=== PATIENT | female | born 1945 | race Caucasian/White ===

== ENCOUNTER 2017-02-08 06:58 | Emergency (ER) | payer MEDICARE ==
[~2017-02-08] VITALS: Ht 165.1 cm; Wt 57.0 kg
[~2017-02-08 06:58] MED LIST: AMIT100T6; ASPI81; CALC250T; CLOP75; FISH300C2; IRBE150T49; LORA-392; NITR0.4S; SYNT88TA; TAB-TAB; TEMA7.5C9
[2017-02-08 07:06] VITALS: BP 113/67; PULSE 92; RESP 19; TEMP 98.8; O2SAT 99
--- NOTE | 2017-02-08 07:22 | PD ---
HPI Chief Complaint: Suicide Ideation/Attempt Time Seen by Provider: 07:07 Travel History International Travel<30 days: No Contact w/Intl Traveler<30days: No Traveled to known affect area: No History of Present Illness HPI Patient is a 71-year-old female who presents to emergency room under a Jolley act. As per police officers, they responded to a call as patient attended suicide last night. Patient reports that she took 2 Restoril 30 mg as well as 2 tablets of trazodone 50 mg between the hours of 1 AM to 5:45 AM. Patient reports that she wanted to go to sleep and didn't care if she woke up. Patient reports that she takes Elavil 100 mg for depression, reports that she is angry as her primary care doctor refuses refill her medications. Patient did admit to having suicidal ideations to the police officers, patient endorses to me that "I want to go to sleep and I don't care if I don't wake up." Patient denies use of drugs or alcohol. No other complaints. PFSH Past Medical History Arthritis: No Asthma: No Autoimmune Disease: No Blood Disorders: No Anxiety: Yes Heart Rhythm Problems: Yes (POST STENT) Cancer: No Cardiac Catheterization: Yes Cardiovascular Problems: Yes High Cholesterol: No Chemotherapy: No Chest Pain: No Congestive Heart Failure: No COPD: No Cerebrovascular Accident: No Coronary Artery Disease: Yes Diabetes: Yes Patient Takes Glucophage: No Diminished Hearing: No Endocrine: Yes Glaucoma: No Genitourinary: No Headaches: Yes Hypertension: Yes Immune Disorder: Yes (hashimotos thyroiditis) Kidney Stones: No Musculoskeletal: No Neurologic: No Psychiatric: No Reproductive: Yes Respiratory: Yes Migraines: No Myocardial Infarction: Yes (ONE WEEK AGO) Radiation Therapy: No Renal Failure: No Seizures: No Sickle Cell Disease: No Sleep Apnea: Yes Thyroid Disease: Yes Past Surgical History Abdominal Surgery: No AICD: No Appendectomy: Yes Arteriovenous Shunt: No Cardiac Surgery: Yes (STENT ONE WEEK AGO) Cholecystectomy: Yes Ear Surgery: No Endocrine Surgery: No Eye Surgery: No Genitourinary Surgery: No Gynecologic Surgery: Yes (HYSTERECTOMY) Hysterectomy: Yes Insulin Pump: No Joint Replacement: No Oral Surgery: No Pacemaker: No Thoracic Surgery: No Tonsillectomy: Yes Other Surgery: Yes (HEMMROIDS) Social History Alcohol Use: No Tobacco Use: No Substance Use: No Allergies-Medications (Allergen,Severity, Reaction): Coded Allergies: Codeine (Verified Allergy, Severe, Itching, 04/02/07) Sulfa (Verified Allergy, Severe, 04/02/07) Cardizem (Verified Allergy, Intermediate, 04/02/07) Morphine (Verified Allergy, Mild, 04/02/07) Reported Meds & Prescriptions Reported Meds & Active Scripts Active Amitriptyline (Amitriptyline HCl) 50 Mg Tab 50 Mg PO HS PRN Reported Retaine Om3 ([place] 3 Fatty Acids-Evening Pr) 1 Cap Cap 300 Mg Once Daily (Multivitamin) 1 Each Tablet Lorazepam 0.5 Mg Tab 0.5 Mg PO DAILY PRN Synthroid (Levothyroxine Sodium) 88 Mcg Tab 88 Mcg PO DAILY Avapro (Irbesartan) 150 Mg Tab 150 Mg PO DAILY Calcium Citrate 250 Mg Tab 250 Mg PO DAILY Aspirin 81 (Aspirin) 81 Mg Tabdr 81 Mg PO DAILY Pravastatin 10 Mg Tab 10 Mg PO DAILY Review of Systems General / Constitutional: No: Fever Eyes: No: Visual changes HENT: No: Headaches Cardiovascular: No: Chest Pain or Discomfort Respiratory: No: Shortness of Breath Gastrointestinal: No: Abdominal Pain Genitourinary: No: Dysuria Musculoskeletal: No: Pain Skin: No Rash Neurologic: No: Weakness Psychiatric: Positive: Depression, Suicidal Ideations, Mood Disorder Endocrine: No: Polydipsia Hematologic/Lymphatic: No: Easy Bruising Physical Exam Narrative GENERAL: NAD SKIN: Focused skin assessment warm/dry. HEAD: Atraumatic. Normocephalic. EYES: Pupils equal and round. No scleral icterus. No injection or drainage. ENT: No nasal bleeding or discharge. Mucous membranes pink and moist. NECK: Trachea midline. No JVD. CARDIOVASCULAR: Regular rate and rhythm. No murmur appreciated. RESPIRATORY: No accessory muscle use. Clear to auscultation. Breath sounds equal bilaterally. GASTROINTESTINAL: Abdomen soft, non-tender, nondistended. Hepatic and splenic margins not palpable. MUSCULOSKELETAL: No obvious deformities. No clubbing. No cyanosis. No edema. NEUROLOGICAL: Awake and alert. No obvious cranial nerve deficits. Motor grossly within normal limits. Normal speech. PSYCHIATRIC: + SI, depressed affect Data Data Last Documented VS Vital Signs Date Time Temp Pulse Resp B/P Pulse Ox O2 Delivery O2 Flow Rate FiO2 02/08/17 07:09 Room Air 02/08/17 07:06 98.8 92 19 113/67 99 Orders Complete Blood Count With Diff (02/08/17 07:17) Comprehensive Metabolic Panel (02/08/17 07:17) Urinalysis - C+S If Indicated (02/08/17 07:17) Psych Screen (02/08/17 07:17) Drug Screen, Random Urine (02/08/17 07:17) Salicylates (Aspirin) (02/08/17 07:17) Tylenol (Acetaminophen) (02/08/17 07:17) Ecg Monitoring (02/08/17 07:17) Electrocardiogram (02/08/17 07:22) Labs Laboratory Tests Test 02/08/17 02/08/17 07:30 08:50 White Blood Count 7.1 TH/MM3 Red Blood Count 3.92 MIL/MM3 Hemoglobin 12.8 GM/DL Hematocrit 35.8 % Mean Corpuscular Volume 91.4 FL Mean Corpuscular Hemoglobin 32.8 PG Mean Corpuscular Hemoglobin 35.9 % Concent Red Cell Distribution Width 13.0 % Platelet Count 338 TH/MM3 Mean Platelet Volume 7.0 FL Neutrophils (%) (Auto) 50.5 % Lymphocytes (%) (Auto) 32.1 % Monocytes (%) (Auto) 8.9 % Eosinophils (%) (Auto) 6.2 % Basophils (%) (Auto) 2.3 % Neutrophils # (Auto) 3.6 TH/MM3 Lymphocytes # (Auto) 2.3 TH/MM3 Monocytes # (Auto) 0.6 TH/MM3 Eosinophils # (Auto) 0.4 TH/MM3 Basophils # (Auto) 0.2 TH/MM3 CBC Comment DIFF FINAL Differential Comment Sodium Level 133 MEQ/L Potassium Level 4.6 MEQ/L Chloride Level 102 MEQ/L Carbon Dioxide Level 22.5 MEQ/L Anion Gap 9 MEQ/L Blood Urea Nitrogen 15 MG/DL Creatinine 1.56 MG/DL Estimat Glomerular Filtration 33 ML/MIN Rate Random Glucose 113 MG/DL Calcium Level 9.0 MG/DL Total Bilirubin 0.4 MG/DL Aspartate Amino Transf 28 U/L (AST/SGOT) Alanine Aminotransferase 23 U/L (ALT/SGPT) Alkaline Phosphatase 118 U/L Total Protein 8.8 GM/DL Albumin 4.0 GM/DL Salicylates Level LESS THAN 1.7 MG/DL Acetaminophen Level LESS THAN 2.0 MCG/ML Urine Color LIGHT-YELLOW Urine Turbidity CLEAR Urine pH 6.0 Urine Specific [place] 1.006 Urine Protein NEG mg/dL Urine Glucose (UA) NEG mg/dL Urine Ketones NEG mg/dL Urine Occult Blood NEG Urine Nitrite NEG Urine Bilirubin NEG Urine Urobilinogen LESS THAN 2.0 MG/DL Urine Leukocyte Esterase MOD Urine RBC 3 /hpf Urine WBC 1 /hpf Urine Squamous Epithelial 1 /hpf Cells Urine Transitional Epithelial <1 /hpf Cells Urine Bacteria RARE /hpf Urine Hyaline Casts 2 /lpf Microscopic Urinalysis Comment CULT NOT INDICATED Urine Opiates Screen NEG Urine Barbiturates Screen NEG Urine Amphetamines Screen NEG Urine Benzodiazepines Screen POS Urine Cocaine Screen NEG Urine Cannabinoids Screen NEG MDM Medical Decision Making Medical Screen Exam Complete: Yes Emergency Medical Condition: Yes Interpretation(s) EKG at 0751: NSR at 71bpm, qt/qtc: 408/431, no acute st or t wave changes Vital Signs Date Time Temp Pulse Resp B/P Pulse Ox O2 Delivery O2 Flow Rate FiO2 02/08/17 07:09 Room Air 02/08/17 07:06 98.8 92 19 113/67 99 Differential Diagnosis Differential includes depression, drug overdose Narrative Course 71-year-old female who presents to emergency room under Jolley act as she tried to commit suicide last night. Between the hours of 1 AM to 5:45 AM, patient took 2 tabs of Restoril 30 mg as well as 2 tablets of trazodone 50 mg in attempt to harm her self. Psychiatric labs ordered, plan to have patient screened once medically cleared Diagnosis Primary Impression: Depression Qualified Code: F32.9 - Depression, unspecified depression type Scripts Amitriptyline 50 Mg Tab50 Mg PO HS PRN (INSOMNIA) #7 TAB Ref 0 Prov:Yamini Eubanks 02/08/17 Neisha Killian DO Feb 08, 2017 07:22
[2017-02-08 07:45] LABS: AUTOMATED NEUTROPHIL # 3.6 TH/MM3 (1.8-7.7); BASOPHIL # 0.2 TH/MM3 (0-0.2); BASOPHIL % 2.3 % (0.0-2.0); EOSINOPHIL # 0.4 TH/MM3 (0-0.4); EOSINOPHIL % 6.2 % (0.0-4.0); HEMATOCRIT 35.8 % (35.0-46.0); HEMO FLAGS DIFF FINAL; LYMPH % 32.1 % (9.0-44.0); LYMPHOCYTE # 2.3 TH/MM3 (1.0-4.8); MEAN CELL VOLUME 91.4 FL (80.0-100.0); MEAN CORPUSCULAR HEMOGLOBIN 32.8 PG (27.0-34.0); MEAN CORPUSCULAR HGB CONC 35.9 % (32.0-36.0); MONO % 8.9 % (0.0-8.0); NEUT % 50.5 % (16.0-70.0); PLATELET COUNT 338 TH/MM3 (150-450); RED BLOOD COUNT 3.92 MIL/MM3 (4.00-5.30); WHITE BLOOD COUNT 7.1 TH/MM3 (4.0-11.0)
[2017-02-08] MEDS ORDERED: ASPI-110 PO (08:01)
[2017-02-08] MEDS ORDERED: PRAV10TA PO (08:01)
[2017-02-08] MEDS ORDERED: ONCETAB7 (08:01)
[2017-02-08] MEDS ORDERED: LORA-373 PO (08:01)
[2017-02-08] MEDS ORDERED: SYNT88TA PO (08:01)
[2017-02-08] MEDS ORDERED: IRBE150T49 PO (08:01)
[2017-02-08] MEDS ORDERED: CALC250T PO (08:01)
[2017-02-08] MEDS ORDERED: OMEG1CAP33 (08:02)
[2017-02-08 08:13] LABS: ALT (GPT) 23 U/L (10-53); ANION GAP 9 MEQ/L (5-15); AST (GOT) 28 U/L (15-37); BICARBONATE 22.5 MEQ/L (21.0-32.0); BLOOD UREA NITROGEN 15 MG/DL (7-18); CHLORIDE 102 MEQ/L (98-107); GLOMERULAR FILTRATION RATE 33 ML/MIN (>89); POTASSIUM 4.6 MEQ/L (3.5-5.1); SODIUM (NA) 133 MEQ/L (136-145)
[2017-02-08 08:15] LABS: ALKALINE PHOSPHATASE 118 U/L (45-117); TOTAL BILIRUBIN ADULT 0.4 MG/DL (0.2-1.0)
[2017-02-08 08:23] LABS: ACETAMINOPHEN LESS THAN 2.0 MCG/ML (10.0-30.0)
[2017-02-08 09:37] LABS: BACTERIA, URINE RARE /hpf; BLOOD, URINE NEG (NEG); COMMENT (UR) CULT NOT INDICATED; CULTURE IF INDICATED CULT NOT INDICATED; GLUCOSE,URINE NEG (NEG); HYALINE CAST, URINE 2 /lpf (RARE); KETONE, URINE NEG (NEG); NITRITE,URINE NEG (NEG); SQUAMOUS EPITHELIAL CELL URINE 1 /hpf (0-5); TRANSITIONAL EPI CELLS, URINE <1 /hpf; URINE COLOR LIGHT-YELLOW (YELLW/STRAW)
--- NOTE | 2017-02-08 10:22 | PD ---
History of Present Illness Chief Complaint: Suicide Ideation/Attempt Time Seen by Provider: 09:50 Travel History International Travel<30 Days: No Contact w/Intl Traveler<30days: No Known affected area: No Legal Status Legal Status: [place] Act History of Present Illness: History of Present Illness Patient is a 71-year-old female with a reported history of anxiety and depression with no formal psychiatric treatment who presents to emergency room under a Jolley act. The BA alleges that the police responded to a call regarding a suicidal individual. She reported that she took #2 Restoril 30 mg and # 2 Trazodone 50mg as she was unable to sleep. She sated " I wished I didn't wake up". The patient later called the police herself because she was not feeling well. EMR is reviewed. No previous contact with [facility] psychiatry. She is seen in main ED with nurse Coy. She is alert, engaging, calm, cooperative female who appears stated age. She is clean and dressed in hospital gown. Speech is clear, logical, of normal rate. There is no rick or hypomania. Mood is anxious. She does not appear to be responding to internal stimuli. Denies any hallucinatory process. Patient denies any suicidal or homicidal ideation, intent or plan. She expresses her frustration as well as feeling overwhelmed with the care of her who has dementia. She states she was more upset yesterday when she was told by her PCP that she was nt going to renew her Elavil which she has taken for several years. She was unable to sleep and felt so frustrated that she took the Trazodone and the Restoril to try and sleep and denies that it was as a suicidal gesture. She is wanting to find a psychiatrist at this time to initiate formal treatment. PFSH Past Medical History Arthritis: No Asthma: No Autoimmune Disease: No Blood Disorders: No Anxiety: Yes Heart Rhythm Problems: Yes (POST STENT) Cancer: No Cardiac Catheterization: Yes Cardiovascular Problems: Yes High Cholesterol: No Chemotherapy: No Chest Pain: No Congestive Heart Failure: No COPD: No Cerebrovascular Accident: No Coronary Artery Disease: Yes Diabetes: Yes Patient Takes Glucophage: No Diminished Hearing: No Endocrine: Yes Glaucoma: No Genitourinary: No Headaches: Yes Hypertension: Yes Immune Disorder: Yes (hashimotos thyroiditis) Kidney Stones: No Musculoskeletal: No Neurologic: No Psychiatric: No Reproductive: Yes Respiratory: Yes Migraines: No Myocardial Infarction: Yes (ONE WEEK AGO) Radiation Therapy: No Renal Failure: No Seizures: No Sickle Cell Disease: No Sleep Apnea: Yes Thyroid Disease: Yes Past Surgical History Abdominal Surgery: No AICD: No Appendectomy: Yes Arteriovenous Shunt: No Cardiac Surgery: Yes (STENT ONE WEEK AGO) Cholecystectomy: Yes Ear Surgery: No Endocrine Surgery: No Eye Surgery: No Genitourinary Surgery: No Gynecologic Surgery: Yes (HYSTERECTOMY) Hysterectomy: Yes Insulin Pump: No Joint Replacement: No Oral Surgery: No Pacemaker: No Thoracic Surgery: No Tonsillectomy: Yes Other Surgery: Yes (HEMMROIDS) Psychiatric History Psychiatric History Has been receiving antidepressants prescribed by her PCP. Dr. Yuan. One previous suicide attempt by overdosing in 1997. History of Inpatient Treatment: No Guns or firearms in home: No Social History female. Lives with and her son. Is the caregiver for her . Has one daughter in [place] and a son in [place]. Hx Alcohol Use: No Hx Tobacco Use: No Hx Substance Use: No Hx of Substance Use Treatment: No Family Psychiatric History Negative Allergies-Medications (Allergen,Severity, Reaction): Coded Allergies: Codeine (Verified Allergy, Severe, Itching, 04/02/07) Sulfa (Verified Allergy, Severe, 04/02/07) Cardizem (Verified Allergy, Intermediate, 04/02/07) Morphine (Verified Allergy, Mild, 04/02/07) Reported Meds & Prescriptions Reported Meds & Active Scripts Active Reported Retaine Om3 ([place] 3 Fatty Acids-Evening Pr) 1 Cap Cap 300 Mg Once Daily (Multivitamin) 1 Each Tablet Lorazepam 0.5 Mg Tab 0.5 Mg PO DAILY PRN Synthroid (Levothyroxine Sodium) 88 Mcg Tab 88 Mcg PO DAILY Avapro (Irbesartan) 150 Mg Tab 150 Mg PO DAILY Calcium Citrate 250 Mg Tab 250 Mg PO DAILY Aspirin 81 (Aspirin) 81 Mg Tabdr 81 Mg PO DAILY Pravastatin 10 Mg Tab 10 Mg PO DAILY Review of Systems Except as stated in HPI: all other systems reviewed are Neg Exam Alert: Yes Lester: Person (ox4) Mood: Calm Affect: Appropriate Speech: Clear, Logical Eye Contact: Normal Memory Intact: Comment (No impairmetn) Hallucinations: Other (Negative) Delusions: No Suicidal: Ideation (denies any) Homicidal: Ideation (deneis any) Insight/Judgement Fair. No impaired. MDM Medical Decision Making Medical Record Reviewed: Yes Assessment/Plan Patient is a 71-year-old female with a reported history of anxiety and depression with no formal psychiatric treatment who presents to emergency room under a Jolley act. The BA alleges that the police responded to a call regarding a suicidal individual. She reported that she took #2 Restoril 30 mg and # 2 Trazodone 50mg as she was unable to sleep. She sated " I wished I didn't wake up". Patient denies that she took the pills as a suicidal gesture but rather as a way to get some sleep. She acknowledges feeling frustrated and overwhelmed at the time. However at the time of this examination the patient does not present any suicidal or homicidal ideation,intent or plan.She is future oriented and is requesting discharge for several reasons. 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 She contracts for safety. She agrees to return to Ed if any changes. She is provided a RXfor Elavil she can be seen by outpatient provider. Does not meet BA criteria. [place] BA. Cleared from psychiatry for discharge Orders Complete Blood Count With Diff (02/08/17 07:17) Comprehensive Metabolic Panel (02/08/17 07:17) Urinalysis - C+S If Indicated (02/08/17 07:17) Psych Screen (02/08/17 07:17) Drug Screen, Random Urine (02/08/17 07:17) Salicylates (Aspirin) (02/08/17 07:17) Tylenol (Acetaminophen) (02/08/17 07:17) Ecg Monitoring (02/08/17 07:17) Electrocardiogram (02/08/17 07:22) Results Vital Signs Date Time Temp Pulse Resp B/P Pulse Ox O2 Delivery O2 Flow Rate FiO2 02/08/17 07:09 Room Air 02/08/17 07:06 98.8 92 19 113/67 99 Laboratory Tests Test 02/08/17 02/08/17 07:30 08:50 White Blood Count 7.1 Red Blood Count 3.92 Hemoglobin 12.8 Hematocrit 35.8 Mean Corpuscular Volume 91.4 Mean Corpuscular Hemoglobin 32.8 Mean Corpuscular Hemoglobin 35.9 Concent Red Cell Distribution Width 13.0 Platelet Count 338 Mean Platelet Volume 7.0 Neutrophils (%) (Auto) 50.5 Lymphocytes (%) (Auto) 32.1 Monocytes (%) (Auto) 8.9 Eosinophils (%) (Auto) 6.2 Basophils (%) (Auto) 2.3 Neutrophils # (Auto) 3.6 Lymphocytes # (Auto) 2.3 Monocytes # (Auto) 0.6 Eosinophils # (Auto) 0.4 Basophils # (Auto) 0.2 CBC Comment DIFF FINAL Differential Comment Sodium Level 133 Potassium Level 4.6 Chloride Level 102 Carbon Dioxide Level 22.5 Anion Gap 9 Blood Urea Nitrogen 15 Creatinine 1.56 Estimat Glomerular Filtration 33 Rate Random Glucose 113 Calcium Level 9.0 Total Bilirubin 0.4 Aspartate Amino Transf 28 (AST/SGOT) Alanine Aminotransferase 23 (ALT/SGPT) Alkaline Phosphatase 118 Total Protein 8.8 Albumin 4.0 Salicylates Level LESS THAN 1.7 Acetaminophen Level LESS THAN 2.0 Urine Color LIGHT-YELLOW Urine Turbidity CLEAR Urine pH 6.0 Urine Specific [place] 1.006 Urine Protein NEG Urine Glucose (UA) NEG Urine Ketones NEG Urine Occult Blood NEG Urine Nitrite NEG Urine Bilirubin NEG Urine Urobilinogen LESS THAN 2.0 Urine Leukocyte Esterase MOD Urine RBC 3 Urine WBC 1 Urine Squamous Epithelial 1 Cells Urine Transitional Epithelial <1 Cells Urine Bacteria RARE Urine Hyaline Casts 2 Microscopic Urinalysis Comment CULT NOT INDICATED Urine Opiates Screen NEG Urine Barbiturates Screen NEG Urine Amphetamines Screen NEG Urine Benzodiazepines Screen POS Urine Cocaine Screen NEG Urine Cannabinoids Screen NEG Diagnosis Primary Impression: Adjustment disorder Psychiatrically Cleared: Yes Med/ Other Pt Specific Info: Prescription(s) given Prescriptions Amitriptyline 50 Mg Tab50 Mg PO HS PRN (INSOMNIA) #7 TAB Ref 0 Prov:Yamini Eubanks 02/08/17 Disposition: 01 DISCHARGE HOME Condition: Stable Problem Qualifiers Primary Impression: Adjustment disorder Qualified Code: F43.23 - Adjustment disorder with mixed anxiety and depressed mood Yamini Eubanks Feb 08, 2017 10:22
[2017-02-08] MEDS ORDERED: AMIT50TA3 PO (10:30)
[2017-02-08 11:05] VITALS: BP 122/78
--- NOTE | 2017-02-09 14:14 | EKG ---
Date Performed: 02/08/2017 Time Performed: 07:51:38 PTAGE: 71 years EKG: Sinus rhythm NORMAL ECG PREVIOUS TRACING : 04/03/2007 05.23 Since previous tracing, no significant change. DOCTOR: Yanick Pittman Interpretating Date/Time 02/09/2017 14:13:12
== END 2017-02-08 11:18 | disposition home or self-care (01) ==
LOC: NEPC 06:58
DX: F43.23 Adjustment disorder with mixed anxiety and depressed mood (principal); I10 Essential (primary) hypertension; I25.10 Atherosclerotic heart disease of native coronary artery without angina pectoris; E06.3 Autoimmune thyroiditis; Z79.899 Other long term (current) drug therapy
CPT/HCPCS: 80053; 80307; 81001; 85025; 93005; 99284